=== PATIENT | male | born 1995 | race Two or more races ===

== ENCOUNTER → 2024-05-20 | Emergency (ER) | payer MEDICAID, OTHER ==
[~2024-05-20] VITALS: Ht 162.6 cm; Wt 86.2 kg
[~2024-05-20] MED LIST: ACETAMINOPHEN ES 500 MG TABLET ONE
[2024-05-20 01:32] VITALS: BP 135/86; TEMP 98.1; O2SAT 98
[2024-05-20] MEDS: ACETAMINOPHEN ES 500 MG TABLET PO ONE (02:03)
== END | disposition home or self-care (01) ==
LOC: ER 02:10
DX: S00.81XA Abrasion of other part of head, initial encounter (principal); M25.562 Pain in left knee; Y04.0XXA Assault by unarmed brawl or fight, initial encounter; Y93.89 Activity, other specified; Y92.89 Other specified places as the place of occurrence of the external cause; Y99.8 Other external cause status
CPT/HCPCS: 70450-TC; 70486-TC; 73080-TC; 73564-TC